=== PATIENT | male | born 1995 | race Caucasian/White ===

== ENCOUNTER 2017-01-09 11:00 | Emergency (ER) | payer OTHER ==
[2017-01-09 11:10] VITALS: BP 104/57; PULSE 85; RESP 16; TEMP 97.7; O2SAT 97
--- NOTE | 2017-01-09 12:10 | EDPHY ---
H & P Stated Complaint: Hit head 2 days ago on a wall;reinjured yesterday playing football;no LOC Source: Patient Exam Limitations: No limitations - Personal History Current Tetanus Diphtheria and Acellular Pertussis (TDAP): Yes - Medical/Surgical History Other PMH: ADHD - Social History Smoking Status: Never smoked Time Seen by Provider: 01/09/17 12:10 HPI/ROS: HPI: This is a 21-year-old male presents with Chief Complaint: Hit head 2 days ago on a wall;reinjured yesterday playing football;no LOC Location: Head Quality: Injury Duration: 2 days Signs and Symptoms: ? LOC < 1 minute, No bleeding, no radiation, no numbness, no weakness, no tingling, no incontinence, no decreased range of motion, no swelling, no pain, + nausea, no vomiting Timing: Sudden, intermittent episodes Severity: Moderate Context: Patient is generally healthy and a local [employer] student reports that he was messing around with his friend running down the [place] when they got tangled up and he hit the right side of his head on the wall. He felt immediate pain but it resolved quickly. Monday he played tackle football he does not remember certain parts of the game. He did get hit several times in the head. He has no prior history of concussions. He reports nausea but no vomiting, slowed mentation and difficulty finding his words. Modifying Factors: None Comment: ROS: see HPI Constitutional: No fever, no chills, no weight loss Eyes: No blurred vision Respiratory: No shortness of breath, no cough Cardiovascular: No chest pain Gastrointestinal: No nausea, no vomiting no diarrhea Genitourinary: No dysuria Extremities: No myalgias Neurologic: No weakness, no numbness Skin: No rashes Hematologic: No bruising, no bleeding MEDICAL/SURGICAL/SOCIAL HISTORY: Medical history: Generally healthy. Does not take any regular medications. Surgical history: Denies Social history: Local college soon CONSTITUTIONAL: awake and alert, no obvious distress HEENT: Atraumatic and normocephalic, PERRL, EOMI. Tympanic membranes clear. Oropharynx clear, no exudate and moist pink mucosa. Airway patent. No lymphadenopathy. NECK: Supple, full range of motion, no midline tenderness, No meningismus. Cardiovascular: Normal S1/S2, regular rate, regular rhythm, without murmur rub or gallop. PULMONARY/CHEST: Symmetrical and nontender. Clear to auscultation bilaterally. Good air movement. No accessory muscle usage. ABDOMEN: Soft, nondistended, nontender, no rebound, no guarding, no peritoneal signs, no masses or organomegaly. No CVAT. EXTREMITIES: 2/2 pulses, strength 5/5, no deformities, no clubbing, no cyanosis or edema. NEUROLOGICAL: no focal neuro deficits. GCS 15. Normal so the exam. Normal [id number] test. Normal [id number] test. No nystagmus. SKIN: Warm and dry, no erythema. no rash. Good capillary refill. (Lamar Bryan) Constitutional: Initial Vital Signs Temperature (C) 36.5 C 01/09/17 11:06 Heart Rate 85 01/09/17 11:06 Respiratory Rate 16 01/09/17 11:06 Blood Pressure 104/57 L 01/09/17 11:06 O2 Sat (%) 97 01/09/17 11:06 O2 Delivery Mode Room Air Allergies/Adverse Reactions: No Known Allergies Allergy (Unverified 01/09/17 11:10) Home Medications: Medication Instructions Recorded Amphet Asp and D/Amphet [Adderall 01/09/17 10 MG (*)] Medical Decision Making ED Course/Re-evaluation: Questionable LOC. Head CT scan ordered and called by Dr. Mayberry at 1:23 p.m. with no acute intracranial process (Lamar Bryan) The patient was evaluated and managed by the physician lens assistant. I have reviewed this chart and I agree with the findings and plan of care as documented , as indicated by my signature. I am the secondary supervising physician. ( Heidi Mcqueen) Differential Diagnosis: Head injury including but not limited to concussion, skull fracture, intraparenchymal contusion, subarachnoid, subdural and epidural hematoma. (Lamar Bryan) Departure - Departure Disposition: Home, Routine, Self-Care Clinical Impression: Concussion Condition: Good Instructions: Concussion (ED), Post Concussion Syndrome (ED) Additional Instructions: Please abstain from all physical/contact sports and activity until all symptoms resolved. Please follow-up with [facility] in 1 week for repeat examination. Follow concussion precautions. Referrals: [facility],. [Clinic] - As per Instructions
== END 2017-01-09 13:44 | disposition home or self-care (01) ==
DX: S06.0X0A Concussion without loss of consciousness, initial encounter (principal); W22.01XA Walked into wall, initial encounter; Y92.89 Other specified places as the place of occurrence of the external cause; Y93.02 Activity, running